=== PATIENT | female | born 1975 | race Caucasian/White ===

== ENCOUNTER 2020-02-03 09:10 | Emergency (ER) | payer SELFPAY ==
[2020-02-03 10:00] LABS: Protime INR 0.98
[2020-02-03 10:01] LABS: Absolute Lymphocytes (CBC) 2.8 K/uL (0.7-4.9); Basophils % 0.9 % (0-1.3); Lymphocytes % 28.8 % (15.3-44.8); MPV 9.8 fL (7.6-11.3); RBC Red Blood Cell Count 4.47 M/uL (3.86-4.86)
[2020-02-03 10:07] LABS: ALT/SGPT 15 U/L (12-78); AST/SGOT 11 U/L (15-37); Albumin 3.4 g/dL (3.4-5.0); Alkaline Phosphatase 87 U/L (45-117); BUN Blood Urea Nitrogen 9 mg/dL (7-18); Bicarbonate 25 mmol/L (21-32); Bilirubin Direct < 0.1 mg/dL (0-0.2); Bilirubin Total 0.3 mg/dL (0.2-1.0); Glucose Level 90 mg/dL (74-106); Lipase 103 U/L (73-393); Magnesium 2.2 mg/dL (1.8-2.4); NT PRO-BNP 153 pg/mL (<125); Potassium 3.9 mmol/L (3.5-5.1); Protein, Total 7.6 g/dL (6.4-8.2); Sodium Level 137 mmol/L (136-145); Troponin (Emerg Dept Use Only) < 0.02 ng/mL (0.0-0.045)
--- NOTE | 2020-02-03 10:23 | RAD REPORT ---
EXAM DESCRIPTION: Michael Single View02/03/2020 9:44 am CLINICAL HISTORY: Chest pain COMPARISON: none FINDINGS: The lungs appear clear of acute infiltrate. The heart is normal size IMPRESSION: No acute abnormalities displayed
--- NOTE | 2020-02-03 10:59 | ER ---
Nurse's Notes [facility] Name: Clayton Restrepo Age: 44 yrs Sex: Female : 1975 Arrival Date: 02/03/2020 Time: : Bed 4 Private MD: Diagnosis: Chest pain, unspecified Presentation: 02/02 09:20 Chief complaint: EMS states: Pt. was at work when she started having chest pain that rb1 radiated to her right shoulder, 6/10. No medical history, no medications, and NKDA. Administered Aspirin 324 mg PO x 1 and 1/2 inch of Nitro paste to the left chest, pain decreased to 3/10. 12-Lead showed SR. Coronavirus screen: Proceed with normal triage. Ebola Screen: Patient negative for fever greater than or equal to 101.5 degrees Fahrenheit, and additional compatible Ebola Virus Disease symptoms. Initial Sepsis Screen: Does the patient meet any 2 criteria? No. Patient's initial sepsis screen is negative. Does the patient have a suspected source of infection? No. Patient's initial sepsis screen is negative. Risk Assessment: Do you want to hurt yourself or someone else? Patient reports no desire to harm self or others. Onset of symptoms was February 03, 2020. 09:20 Method Of Arrival: EMS: [facility] 09:20 Acuity: JAZMIN 3 rb1 Triage Assessment: 09:20 General: Appears in no apparent distress. comfortable, Behavior is calm, cooperative. rb1 Pain: Complains of pain in mid-sternal area Pain radiates to right shoulder Pain currently is 3 out of 10 on a pain scale. Neuro: Level of Consciousness is awake, alert, obeys commands, Oriented to person, place, time, situation, Reports numbness in bilateral arms, hands, and feet Denies weakness blurred vision dizziness, headache. Cardiovascular: Capillary refill < 3 seconds. Respiratory: Airway is patent Respiratory effort is even, unlabored, Respiratory pattern is regular, symmetrical. Respiratory: Denies cough, shortness of breath. GI: No signs and/or symptoms were reported involving the gastrointestinal system. : No signs and/or symptoms were reported regarding the genitourinary system. Derm: Skin is pink, warm \T\ dry. Musculoskeletal: Range of motion: intact in all extremities. 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 - Social history:: Smoking status: Patient reports the use of cigarette tobacco products, smokes one-half pack cigarettes per day. Screenin:20 Abuse screen: Denies threats or abuse. Nutritional screening: No deficits noted. rb1 Tuberculosis screening: No symptoms or risk factors identified. Fall Risk None identified. Assessment: 09:20 General: SEE TRIAGE NOTE. bp 10:00 Reassessment: Patient appears in no apparent distress at this time. Patient and/or rb1 family updated on plan of care and expected duration. Pain level reassessed. Patient is alert, oriented x 3, equal unlabored respirations, skin warm/dry/pink. Patient states feeling better. 10:34 Reassessment: VS STABLE ON MONITOR, INITIAL RESULTS UNREMARKABLE. bp 11:33 Reassessment: Patient appears in no apparent distress at this time. Patient and/or rb1 family updated on plan of care and expected duration. Pain level reassessed. Patient is alert, oriented x 3, equal unlabored respirations, skin warm/dry/pink. 11:52 Reassessment: PT REFUSING ADMIT, REQUESTING AMA. PT COUNSELED BY PROVIDER AND STAFF TO bp REMAIN BUT CONTINUES TO REFUSE. PT ADVISED TO RETURN IF S/S RETURN OR WORSEN. Vital Signs: 09:20 BP 137 / 77; Pulse 75; Resp 20; Temp 97.6(TE); Pulse Ox 100% ; Weight 99.79 kg (R); rb1 Height 5 ft. 5 in. (165.10 cm); Pain 3/10; 10:01 BP 119 / 67; Pulse 71; Resp 15; Pulse Ox 100% on R/A; Pain 2/10; rb1 11:00 BP 143 / 85; Pulse 64; Resp 12; Pulse Ox 100% ; rb1 11:52 BP 147 / 88; Pulse 71; Resp 16; Temp 97.8; Pulse Ox 100% ; bp 09:20 Body Mass Index 36.61 (99.79 kg, 165.10 cm) [facility] ED Course: 09:19 Patient arrived in ED. rb1 09:20 Arm band placed on right wrist. rb1 09:20 Patient has correct armband on for positive identification. Placed in gown. Bed in low rb1 position. Call light in reach. Side rails up X2. monitoring specialist on. Pulse ox on. NIBP on. Warm blanket given. 09:20 Maintain EMS IV. Dressing intact. Good blood return noted. Site clean \T\ dry. Gauge \T\ rb 1 site: 20 G R AC. Patient maintains SpO2 saturation greater than 95% on room air. 09:22 Dick Vanessa NP is PHCP. pm1 09:22 Brayan Laguna MD is Attending Physician. pm1 09:23 Triage completed. rb1 09:31 Maria Guadalupe Rodríguez, RN is Primary Nurse. rb1 09:40 EKG done, by ED staff, reviewed by Dick Vanessa NP. mh5 09:52 XRAY Chest (1 view) In Process Unspecified. EDMS 10:58 Elena Thomas MD is Hospitalizing Provider. pm1 12:01 No provider procedures requiring assistance completed. IV discontinued, intact, bp bleeding controlled, No redness/swelling at site. Pressure dressing applied. Administered Medications: No medications were administered Outcome: 10:58 Decision to Hospitalize by Provider. pm1 12:01 AMA AMA form signed bp 12:01 Condition: stable 12:02 Patient left the ED. bp 12:28 Patient left the ED. eb Signatures: Dispatcher [employer] EDMS Maria Guadalupe Rodríguez, RN RN Dcik Landeros NP CLINICAL REHABILITATION AIDE 1 Latonya Juarez [facility] Félix Chavez RN RN Bren Lazar
--- NOTE | 2020-02-03 10:59 | EDPHYS ---
Physician Documentation [facility] Name: Clayton Restrepo Age: 44 yrs Sex: Female : 1975 Arrival Date: 02/03/2020 Time: : Bed 4 Private MD: ED Physician Brayan Laguna HPI: 02/02 09:22 This 44 yrs old Female presents to ER via EMS with complaints of Chest Pain. pm1 09:22 The patient or guardian reports chest pain that is located primarily in the mid-sternal pm1 area. Onset: today, at 08:00. The pain does not radiate. Associated signs and symptoms: Pertinent positives: right shoulder pain, Pertinent negatives: abdominal pain, cough, dizziness, headache, nausea, near syncope, palpitations, shortness of breath, vomiting. The chest pain is described as a pressure. Duration: The patient or guardian reports a single episode, that is still ongoing, but improving. Modifying factors: The symptoms are alleviated by NTG, 1/2 inch paste per EMS the symptoms are aggravated by nothing. Severity of pain: At its worst the pain was a 8 / 10 in the emergency department the pain has improved is a 2 / 10. The patient has not experienced similar symptoms in the past. The patient has not recently seen a physician, and does not have an established primary care provider. 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 EMS gave nitro paste 1/2 paste that improved the patient's pain from 8/10 to 2/10. Also given aspirin 325 in route. 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 - Social history:: Smoking status: Patient reports the use of cigarette tobacco products, smokes one-half pack cigarettes per day. ROS: 09:22 Constitutional: Negative for fever, chills, and weight loss, ENT: Negative for injury, pm1 pain, and discharge, Neck: Negative for injury, pain, and swelling. 09:22 Respiratory: Negative for shortness of breath, cough, wheezing, and pleuritic chest pain, Abdomen/GI: Negative for abdominal pain, nausea, vomiting, diarrhea, and constipation, Back: Negative for injury and pain, MS/Extremity: Negative for injury and deformity, Skin: Negative for injury, rash, and discoloration. 09:22 Cardiovascular: Positive for chest pain, Negative for edema, orthopnea, palpitations. 09:22 Neuro: Positive for tingling, of the bilateral fingers and toes, Negative for dizziness, headache, numbness, syncope, near syncope. Exam: 09:22 Constitutional: This is a well developed, well nourished patient who is awake, alert, pm1 and in no acute distress. Head/Face: Normocephalic, atraumatic. Chest/axilla: Normal chest wall appearance and motion. Nontender with no deformity. No lesions are appreciated. 09:22 Respiratory: Lungs have equal breath sounds bilaterally, clear to auscultation and percussion. No rales, rhonchi or wheezes noted. No increased work of breathing, no retractions or nasal flaring. 09:22 Back: No spinal tenderness. No costovertebral tenderness. Full range of motion. Skin: Warm, dry with normal turgor. Normal color with no rashes, no lesions, and no evidence of cellulitis. MS/ Extremity: Pulses equal, no cyanosis. Neurovascular intact. Full, normal range of motion. 09:22 Cardiovascular: Exam negative for acute changes, Rate: normal, Rhythm: regular, Pulses: no pulse deficits are appreciated, Heart sounds: normal, normal S1and S2, Edema: is not appreciated. 09:22 Abdomen/GI: Inspection: obese Palpation: abdomen is soft and non-tender, in all quadrants, mass, is not appreciated, rebound tenderness, is not appreciated. 09:22 Neuro: Exam negative for acute changes, Orientation: is normal, Mentation: is normal, Motor: is normal, moves all fours, Sensation: is normal, no obvious gross deficits. Vital Signs: 09:20 BP 137 / 77; Pulse 75; Resp 20; Temp 97.6(TE); Pulse Ox 100% ; Weight 99.79 kg (R); rb1 Height 5 ft. 5 in. (165.10 cm); Pain 3/10; 10:01 BP 119 / 67; Pulse 71; Resp 15; Pulse Ox 100% on R/A; Pain 2/10; rb1 11:00 BP 143 / 85; Pulse 64; Resp 12; Pulse Ox 100% ; rb1 11:52 BP 147 / 88; Pulse 71; Resp 16; Temp 97.8; Pulse Ox 100% ; bp 09:20 Body Mass Index 36.61 (99.79 kg, 165.10 cm) rb1 MDM: 09:23 Patient medically screened. pm1 10:57 Data reviewed: vital signs. Data interpreted: Pulse oximetry: on room air is 100 %. pm1 Interpretation: normal. Counseling: I had a detailed discussion with the patient and/or guardian regarding: the historical points, exam findings, and any diagnostic results supporting the discharge/admit diagnosis, lab results, radiology results, the need for further work-up and treatment in the hospital. 10:57 ED course: Admitting patient due to smoking history, obesity, chest pain response to pm1 nitro paste, and father's family history of AK at age 33 and CABG x 3 in his 50's. 12:02 Refusal of service: The patient/guardian displays adequate decision making capability pm1 and despite a detailed discussion of alternatives, benefits, risks, and consequences refuses: Admission to the hospital for further work-up and treatment, patient decided to go home against medical advice. Explained in detail the alternatives, benefits, risks, and consequences of refusal. Patient wants to follow up on an outpatient basis with her father's surgical orderly. 02/02 09:22 Order name: Basic Metabolic Panel; Complete Time: 10:16 pm1 02/02 09:22 Order name: CBC with Diff; Complete Time: 10:16 pm02/02 09:22 Order name: LFT's; Complete Time: 10:16 pm02/02 09:22 Order name: Magnesium; Complete Time: 10:16 pm1 02/02 09:22 Order name: NT PRO-BNP; Complete Time: 10:16 pm02/02 09:22 Order name: PT-INR; Complete Time: 10:16 pm02/02 09:22 Order name: Troponin (emerg Dept Use Only); Complete Time: 10:16 pm1 02/02 09:22 Order name: XRAY Chest (1 view); Complete Time: 10:29 pm1 02/02 09:22 Order name: EKG; Complete Time: 09:23 pm1 02/02 09:22 Order name: Cardiac monitoring; Complete Time: : pm1 02/02 09:22 Order name: EKG - Nurse/Tech; Complete Time: : pm02/02 09:22 Order name: IV Saline Lock; Complete Time: : pm02/02 09:22 Order name: Labs collected and sent; Complete Time: 09:30 pm1 02/02 09:22 Order name: Lipase; Complete Time: 10:16 pm1 02/02 09:22 Order name: O2 Per Protocol; Complete Time: : pm02/02 09:22 Order name: O2 Sat Monitoring; Complete Time: : pm Administered Medications: No medications were administered Disposition: 13:31 Co-signature as Attending Physician, Brayan Laguna MD. rn Disposition: 02/03/20 12:07 Patient has left against medical advice. Impression: Chest pain, unspecified. - Patients states they are going to Home. - Condition is Undetermined. - Discharge Instructions: Nonspecific Chest Pain. Follow up: Emergency Department; When: As needed; Reason: Recheck today's complaints, Continuance of care, Re-evaluation by your physician, admission. Follow up: Private Physician; When: Upon discharge from the Emergency Department; Reason: Recheck today's complaints, Continuance of care, Re-evaluation by your physician. - Problem is new. - Symptoms have improved. Signatures: Dispatcher [employer] EDMS Brayan Laguna MD MD rn Barber, Rebecca, RN RN rb1 Dick Vanessa, COLTON BSA OFFICER pm1 Félix Chavez RN RN bp Botello, Elizabeth eb Corrections: (The following items were deleted from the chart) 11:23 10:58 Hospitalization Ordered by Elena Thomas MD for Observation. Preliminary eb diagnosis is Chest pain, unspecified. Bed requested for Telemetry/MedSurg (observation). Status is Observation. Condition is Stable. Problem is new. Symptoms have improved. pm1 12:02 11:23 02/03/2020 10:58 Hospitalization Ordered by Elena Thomas MD for Observation. bp Preliminary diagnosis is Chest pain, unspecified. Bed requested for Telemetry/MedSurg (observation). Status is Observation. Condition is Stable. Problem is new. Symptoms have improved. eb 12:06 12:02 02/03/2020 10:58 Hospitalization Ordered by Elena Thomas MD for Observation. pm1 Preliminary diagnosis is Chest pain, unspecified. Bed requested for Telemetry/MedSurg (observation). Status is Observation. Condition is Stable. Problem is new. Symptoms have improved. bp 12:28 12:07 02/03/2020 12:07 Patients has left against medical advice. Impression: Chest eb pain, unspecified. Patient states they are going to Home. Condition is Undetermined. Follow up: Emergency Department; When: As needed; Reason: Recheck today's complaints, Continuance of care, Re-evaluation by your physician, admission. Follow up: Private Physician; When: Upon discharge from the Emergency Department; Reason: Recheck today's complaints, Continuance of care, Re-evaluation by your physician. Problem is new. Symptoms have improved. pm1
[2020-02-03 12:08] VITALS: O2SAT 100
[2020-02-03 12:13] VITALS: BP 147/88; TEMP 97.8
--- NOTE | 2020-02-05 12:35 | EKG ---
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
== END 2020-02-03 12:28 | disposition left against medical advice (07) ==
LOC: ER 09:10
DX: R07.9 Chest pain, unspecified (principal); F17.210 Nicotine dependence, cigarettes, uncomplicated
CPT/HCPCS: 36415; 71045; 80048; 80076; 83690; 83735; 83880; 84484; 85025; 85610; 93005; 99285